=== PATIENT | male | born 1990 | race Caucasian/White ===

== ENCOUNTER 2017-06-10 07:22 | Emergency (ER) | payer MEDICAID ==
[~2017-06-10] VITALS: Ht 177.8 cm; Wt 80.0 kg
[2017-06-10] MEDS ORDERED: MORPHINE SULFATE 4 MG/ML, 1ML ONE (07:53)
[2017-06-10] MEDS ORDERED: KETOROLAC 30 MG/1 ML ONE (07:53)
[2017-06-10 07:54] LABS: HEMOGLOBIN 14.5 g/dL (13.7-18.0); WHITE BLOOD COUNT 14.1 x10^3/uL (3.4-10)
[2017-06-10] MEDS ORDERED: ONDANSETRON 2MG/ML, 2ML ONE (07:54)
[2017-06-10] MEDS ORDERED: ONDANSETRON 2MG/ML, 2ML IVPush ONE (08:00)
[2017-06-10] MEDS ORDERED: SODIUM CHLORIDE 0.9% 1,000ML IVBOLUS ONE (08:00)
[2017-06-10] MEDS ORDERED: AZITHROMYCIN 500 MG TABLET PO ONE (08:00)
[2017-06-10] MEDS ORDERED: MORPHINE SULFATE 4 MG/ML, 1ML IVPush PRN (08:00)
[2017-06-10] MEDS ORDERED: CEFTRIAXONE 250 MG IM ONE (08:00)
[2017-06-10] MEDS ORDERED: KETOROLAC 30 MG/1 ML IVPush ONE (08:00)
[2017-06-10] MEDS ORDERED: SODIUM CHLORIDE FLUSH 10ML SYR IVF ONE (08:00)
[2017-06-10 08:01] VITALS: BP 136/88
[2017-06-10 08:09] LABS: BLOOD UREA NITROGEN 12 mg/dL (7-18)
[2017-06-10] MEDS ORDERED: CEFTRIAXONE 250 MG ONE (08:54)
[2017-06-10] MEDS ORDERED: AZITHROMYCIN 500 MG TABLET ONE (08:54)
[2017-06-10] MEDS ORDERED: LIDOCAINE-MPF 2% ,5ML ONE (08:55)
== END 2017-06-10 09:21 | disposition home or self-care (01) ==
LOC: ED 09:10
DX: N45.1 Epididymitis (principal); N34.1 Nonspecific urethritis; A64 Unspecified sexually transmitted disease
CPT/HCPCS: 36415; 76870; 80048; 82040; 85025; 96372; 96374; 96375; 99285; J0696; J1885; J2405; J7030

== ENCOUNTER 2019-03-19 17:10 | Emergency (ER) | payer SELFPAY ==
[~2019-03-19] VITALS: Ht 180.3 cm; Wt 78.4 kg
[2019-03-19 17:13] VITALS: BP 138/83
--- NOTE | 2019-03-19 17:36 | NUR ---
DC EDUCATION PROVIDED, PT DEMONSTRATES UNDERSTANDING. PT AMBULATED STEADILY TO DC WITH RN
== END 2019-03-19 17:38 | disposition home or self-care (01) ==
LOC: ED 17:32
DX: K02.9 Dental caries, unspecified (principal)
CPT/HCPCS: 99283

== ENCOUNTER 2019-03-29 19:47 | Emergency (ER) | payer SELFPAY ==
[~2019-03-29] VITALS: Ht 177.8 cm; Wt 74.2 kg
[2019-03-29 20:38] VITALS: BP 138/74
== END 2019-03-29 20:43 | disposition home or self-care (01) ==
LOC: ED 20:20
DX: K04.7 Periapical abscess without sinus (principal); L04.0 Acute lymphadenitis of face, head and neck
CPT/HCPCS: 99283

== ENCOUNTER 2020-07-18 00:12 | Emergency (ER) | payer MEDICAID ==
[~2020-07-18] VITALS: Ht 170.2 cm; Wt 75.0 kg
[2020-07-18 00:23] VITALS: BP 121/71
--- NOTE | 2020-07-18 00:32 | NUR ---
PT'S HAVING PAIN IN LEFT TESTICAL AND BURNING WHILE PEEING. PT STATES STARTED 2 DAYS AGO. PT HAD SEXUAL INTERCOURSE WITH SOMEONE WHO WAS POSITIVE WITH CHLAMIDIA ABOUT A WEEK AGO. PT IN 8/10 PAIN AT THIS TIME. PT MOANING IN PAIN AT THIS TIME, PT MAKING JOKES AND LAUGHING WELL. ERP AT BEDSIDE FOR EVAL
[2020-07-18] MEDS ORDERED: CEFTRIAXONE 250 MG ONE (00:48)
[2020-07-18] MEDS ORDERED: AZITHROMYCIN 250 MG TABLET ONE (00:56)
[2020-07-18] MEDS ORDERED: KETOROLAC 30 MG/1 ML IM ONE (01:00)
[2020-07-18] MEDS ORDERED: AZITHROMYCIN 500 MG TABLET PO ONE (01:00)
[2020-07-18] MEDS ORDERED: CEFTRIAXONE 250 MG IM ONE (01:00)
--- NOTE | 2020-07-18 01:01 | NUR ---
PT REFUSED TESTICLE US AT THIS TIME
== END 2020-07-18 01:21 | disposition home or self-care (01) ==
LOC: ED 00:50
DX: N45.1 Epididymitis (principal); N45.2 Orchitis; R30.0 Dysuria; A64 Unspecified sexually transmitted disease; F17.210 Nicotine dependence, cigarettes, uncomplicated; F12.10 Cannabis abuse, uncomplicated; Z72.9 Problem related to lifestyle, unspecified
CPT/HCPCS: 87491; 87591; 96372; 99283; 99406; J0696

== ENCOUNTER 2021-06-29 07:58 | Emergency (ER) | payer MEDICAID ==
[~2021-06-29] VITALS: Ht 180.3 cm; Wt 77.1 kg
--- NOTE | 2021-06-29 08:22 | NUR ---
PT C/O RASH IN HIS GROIN AREA THAT STARTED A WEEK AGO. PT STATES IT HURTS AND IS UNCOMFORTABLE. NO DYSURIA.
--- NOTE | 2021-06-29 09:29 | NUR ---
PT REC'VD DISCHARGE INSTRUCTIONS AND EDUCATION. PT HAD NO FURTHER QUESTIONS.
[2021-06-29 09:30] VITALS: BP 128/92
== END 2021-06-29 09:56 | disposition home or self-care (01) ==
LOC: ED 09:09
DX: A60.01 Herpesviral infection of penis (principal); G40.909 Epilepsy, unspecified, not intractable, without status epilepticus
CPT/HCPCS: 99283